=== PATIENT | male | born 1960 | race Caucasian/White ===

== ENCOUNTER 2020-02-29 14:58 | Emergency (ER) | payer BC, OTHER ==
--- NOTE | 2020-02-29 15:21 | EDM.PDOC ---
ED HPI GENERAL MEDICAL PROBLEM - General Stated Complaint: TINGLING DOWN L ARM;CHEST TIGHTNESS Time Seen by Provider: 02/29/20 15:15 Source of Information: Reports: Patient History Limitations: Reports: No Limitations - History of Present Illness INITIAL COMMENTS - FREE TEXT/NARRATIVE: Patient comes emergency department today with complaints of left chest wall pain and some tingling down his arm. This patient relates for the past 3 to 4 days he has had point tenderness pain between 2 ribs on the left anterior midclavicular line of his chest. The pain gets worse with deep breath cough and movement or palpation. He has no midsternal chest pain. No shortness of breath. No diaphoresis. No weakness dizziness lightheadedness. No palpitations. Today after laying his arm on a desk differently than he normally does he had a little tingling in his left arm which is resolved prior to arrival. He denies any other paresthesias. No shortness of breath cough or congestion. No fever no chills. No abdominal pain nausea or vomiting. No hematuria dysuria or urinary frequency. No black or tarry stools. No headache visual disturbances. No paresthesias no COVID exposure NO COVID symptoms. - Related Data Allergies Allergy/AdvReac Type Severity Reaction Status Date / Time No Known Drug Allergies Allergy Other Verified 02/29/20 15:40 Home Meds: Home Meds hydroCHLOROthiazide [Hydrochlorothiazide] 1 tab PO DAILY 01/21/14 [History] Social & Family History - Living Situation & Occupation Living situation: Reports: Occupation: Employed ED ROS GENERAL - Review of Systems Review Of Systems: Comprehensive ROS is negative, except as noted in HPI. ED EXAM, GENERAL - Physical Exam Exam: See Below Exam Limited By: No Limitations General Appearance: Alert, WD/WN, No Apparent Distress Ears: Normal External Exam Nose: Normal Inspection, Normal Mucosa Throat/Mouth: Normal Inspection, Normal Lips, Normal Teeth, Normal Oropharynx, Normal Voice Head: Atraumatic, Normocephalic Neck: Normal Inspection, Supple, Non-Tender Respiratory/Chest: No Respiratory Distress, Lungs Clear, Normal Breath Sounds, No Accessory Muscle Use, Chest Non-Tender (Just between ribs approximately 5 and 6 on the anterior midclavicular line there is some point tenderness. There is no bruising swelling ecchymosis. Flail segments. Subcutaneous emphysema in the rest of the chest is unremarkable as well.) Cardiovascular: Normal Peripheral Pulses, Regular Rate, Rhythm GI/Abdominal: Normal Bowel Sounds, Soft, Non-Tender (Male) Exam: Deferred Rectal (Males) Exam: Deferred Back Exam: Normal Inspection, Full Range of Motion Extremities: Normal Inspection, Normal Range of Motion, No Pedal Edema, Normal Capillary Refill Neurological: Alert, Oriented, Normal Cognition, Normal Gait, No Motor/Sensory Deficits Psychiatric: Normal Affect, Normal Mood Skin Exam: Warm, Dry, Intact, Normal Color, No Rash #1 Interpretation EKG Date: 02/29/20 Time: 15:04 Rhythm: NSR Rate (Beats/Min): 78 [place]: Normal P-Wave: Present QRS: Normal ST-T: Normal QT: Normal Comparison: No Change Course - Orders/Labs/Meds Orders: Active Orders 24 hr Category Date Time Status EKG Documentation Completion [RC] STAT Care 02/29/20 15:20 Active Labs: Laboratory Tests 02/29/20 02/29/20 Range/Units 15:30 15:30 WBC 7.8 (4.0-10.0) x10^3/uL RBC 4.77 (4.5-6.0) x10^6/uL Hgb 15.0 (14.0-18.0) g/dL Hct 42.7 (40.0-52.0) % MCV 89.5 (78.0-93.0) fL MCH 31.4 (26.0-32.0) pg MCHC 35.1 (32.0-36.0) g/dL RDW Coeff of Alyssa 13.3 (10.0-15.0) % Plt Count 268 (130-400) x10^3/uL Neut % (Auto) 65.4 (50.0-80.0) % Lymph % (Auto) 23.1 L (25.0-50.0) % [place] % (Auto) 9.6 (2.0-11.0) % Eos % (Auto) 1.5 (0.0-4.0) % Baso % (Auto) 0.4 (0.2-1.2) % Sodium 139 (136-145) mmol/L Potassium 3.6 (3.5-5.1) mmol/L Chloride 103 (98-107) mmol/L Carbon Dioxide 28 (21-32) mmol/L Anion Gap 11.6 (10-20) mmol/L BUN 16 (7-18) mg/dL Creatinine 1.1 (0.70-1.30) mg/dL Est Cr Clr Drug Dosing TNP Estimated GFR (MDRD) > 60 Glucose 107 H (74-106) mg/dL Calcium 9.6 (8.5-10.1) mg/dL Corrected Calcium 9.60 (8.5-10.1) mg/dL Total Bilirubin 0.9 (0.2-1.0) mg/dL AST 35 (15-37) U/L ALT 54 (16-63) U/L Alkaline Phosphatase 49 (46-116) U/L Troponin I < 0.017 (<=0.056) ng/mL Total Protein 7.4 (6.4-8.2) g/dL Albumin 4.0 (3.4-5.0) g/dL Globulin 3.4 Albumin/Globulin Ratio 1.18 - Re-Assessments/Exams Free Text/Narrative Re-Assessment/Exam: 02/29/20 18:30 EKG is normal. X-ray is normal. Laboratory evaluation is unremarkable. Troponin is negative with his intermittent sharp shooting stabbing chest wall pain for the last 3 to 4 days. Is really the sequelae of chest wall pain are a pulled muscle in the chest. His paresthesias only lasted for a short period of time that resolved on his own. Tylenol ibuprofen for the chest wall pain. Recheck if anything new or worse. He is comfortable with this plan his questions are answered. Departure - Departure Time of Disposition: 16:18 Disposition: Home, Self-Care 01 Clinical Impression: Chest wall pain Instructions: Chest Wall Pain, [id number] Referrals: Weston Gallegos MD [Primary Care Provider] - Additional Instructions: Tylenol and or Ibuprofen as needed for pain. Ice or Heat to the affected area. Return to the ED if new or worsening symptoms. Follow up with PCP in the next 4-6 days if not improving sooner if worse. - My Orders Last 24 Hours: My Active Orders 02/29/20 15:20 EKG Documentation Completion [RC] STAT - Assessment/Plan Last 24 Hours: My Active Orders 02/29/20 15:20 EKG Documentation Completion [RC] STAT
--- NOTE | 2020-02-29 15:42 | CR ---
[id number] RAD/RAD Chest PA And Lateral EXAM: RAD Chest PA And Lateral INDICATION: CHEST PAIN. COMPARISON: None. DISCUSSION: Cardiomediastinal silhouette is normal in size and contour. Lungs are clear. No pleural effusion or pneumothorax. Spinal fusion hardware extends beyond the field of view of this examination inferiorly. IMPRESSION: Negative examination of the chest. Gumaro Monsalve MD 02/29/20 1540 Thank you for allowing us to participate in the care of your patient.
[2020-02-29 15:59] LABS: CHLORIDE,CL 103 mmol/L (98-107); SODIUM,NA 139 mmol/L (136-145)
[2020-02-29 16:00] LABS: ANION GAP 11.6 mmol/L (10-20)
== END 2020-02-29 16:24 | disposition home or self-care (01) ==
LOC: SUPCPDRO 14:58 → VM.ED 14:58
DX: R07.89 Other chest pain (principal); R20.2 Paresthesia of skin; Z79.899 Other long term (current) drug therapy
CPT/HCPCS: 36415; 71046; 80053; 84484; 85025; 93005; 93010; 99284; 99285-25